=== PATIENT | female | born 1980 | race American Indian/Alaskan Native ===

== ENCOUNTER 2017-06-06 15:18 | Emergency (ER) | payer OTHER ==
[2017-06-06 15:40] VITALS: BP 133/81; PULSE 90; RESP 18; TEMP 98.2; O2SAT 99
--- NOTE | 2017-06-06 16:37 | ED PDOC ---
HPI: CCC, URI, Sore Throat Time Seen by Provider: 06/06/17 16:01 Chief Complaint (Nursing): Chest Pain History Per: Patient Onset/Duration Of Symptoms: Other (3 weeks) Current Symptoms Are (Timing): Still Present Location Of Pain: Throat Associated Symptoms: Sore Throat, Cough, Sputum. denies: Fever Severity: Mild Additional Complaint(s): Cough productive yellow sputum assoc with sore throat. Has had sxs x 3 weeks which initially improved after 1 week course of Augmentin. Sxs recurred and took another 7 days of Augmentin. Denies fever.Has also been using Symbicort Rx' ed by PMD with no improvement Past Medical History Vital Signs: Last Vital Signs Temp 98.2 F 06/06/17 15:38 Pulse 90 06/06/17 15:38 Resp 18 06/06/17 15:38 BP 133/81 06/06/17 15:38 Pulse Ox 99 06/06/17 16:39 - Medical History PMH: No Chronic Diseases - Family History Family History: States: Unknown Family Hx - Home Medications Home Medications: Ambulatory Orders Medication Instructions Recorded Azithromycin [Zithromax] 250 mg PO DAILY #6 tab 06/06/17 - Allergies Allergies/Adverse Reactions: Allergies Allergy/AdvReac Type Severity Reaction Status Date / Time No Known Allergies Allergy Verified 06/06/17 15:37 Review of Systems Constitutional: Negative for: Fever ENT: Positive for: Throat Pain Cardiovascular: Positive for: Chest Pain Respiratory: Positive for: Cough, Sputum Physical Exam - Physical Exam Appears: Positive for: Non-toxic, No Acute Distress Skin: Positive for: Normal Color, Warm, DRY ENT: Negative for: Pharyngeal Erythema, Tonsillar Exudate, Tonsillar Swelling Neck: Positive for: Supple Cardiovascular/Chest: Positive for: Regular Rate, Rhythm Respiratory: Positive for: Normal Breath Sounds. Negative for: Rhonchi, Wheezing, Respiratory Distress - ECG O2 Sat by Pulse Oximetry: 99 Disposition - Clinical Impression Clinical Impression: Bronchitis - Patient ED Disposition Is Patient to be Admitted: No Counseled Patient/Family Regarding: Studies Performed, Diagnosis, Need For Followup, Rx Given - Disposition Referrals: [facility] [Outside] Disposition: Routine/Home Disposition Time: 18:53 Condition: FAIR Prescriptions: Azithromycin [Zithromax] 250 mg PO DAILY #6 tab Instructions: Chronic Bronchitis (ED) Forms: [employer] ([employer])
--- NOTE | 2017-06-07 09:10 | RAD ---
HISTORY: cough COMPARISON: No prior. TECHNIQUE: Chest PA and lateral FINDINGS: LUNGS: No active pulmonary disease. PLEURA: No significant pleural effusion identified. No pneumothorax apparent. CARDIOVASCULAR: Normal. OSSEOUS STRUCTURES: No significant abnormalities. VISUALIZED UPPER ABDOMEN: Normal. OTHER FINDINGS: None. IMPRESSION: No active disease.
== END 2017-06-06 19:09 | disposition home or self-care (01) ==
LOC: H.ER 15:18
DX: J40 Bronchitis, not specified as acute or chronic (principal)